=== PATIENT | male | born 1950 | race Caucasian/White ===

== ENCOUNTER 2021-10-01 09:10 | Outpatient (CLI) | payer MEDICARE | END 2021-10-01 23:59 | disposition home or self-care (01) | LOC: CARD DIAG 09:10 | PROVIDERS: ATTEND Nurse Practitioner | DX: I08.3 Combined rheumatic disorders of mitral, aortic and tricuspid valves (principal); I50.9 Heart failure, unspecified | CPT/HCPCS: 93306 ==